=== PATIENT | female | born 1930 | race Hispanic/Latino ===

== ENCOUNTER → 2017-09-16 | Outpatient (CLI) | payer MEDICARE | END | disposition home or self-care (01) | LOC: OIH 14:57 | PROVIDERS: ATTEND Internal Medicine | DX: M47.894 Other spondylosis, thoracic region (principal); M47.892 Other spondylosis, cervical region; M85.89 Other specified disorders of bone density and structure, multiple sites | CPT/HCPCS: 72040; 72070 ==

== ENCOUNTER → 2018-05-19 | Outpatient (CLI) | payer MEDICARE | END | disposition home or self-care (01) | LOC: OIH 15:38 | PROVIDERS: ATTEND Internal Medicine | DX: M85.841 Other specified disorders of bone density and structure, right hand (principal); M19.041 Primary osteoarthritis, right hand; M79.89 Other specified soft tissue disorders | CPT/HCPCS: 73120 ==